=== PATIENT | male | born 1960 | race African-American/Black ===

== ENCOUNTER 2017-08-07 06:47 | Emergency (ER) | payer OTHER ==
[~2017-08-07] VITALS: Ht 182.9 cm; Wt 85.0 kg
[2017-08-07] MEDS ORDERED: BARIUM SULFATE 0.1% SUSPENSION 450 ML BOTTLE PO ONE (07:15)
[2017-08-07] MEDS ORDERED: HYDROmorphone 2 MG/ML SYRINGE IVP ONE (07:15)
[2017-08-07] MEDS ORDERED: SODIUM CHLORIDE 0.9% 1,000 ML IV ONE (07:15)
[2017-08-07] MEDS ORDERED: ONDANSETRON HCL 4 MG/2 ML VIAL IVP ONE (07:15)
[2017-08-07 07:32] LABS: BASOPHILS % (AUTO) 0.5 % (0.0-2.0); EOSINOPHILS % (AUTO) 0.9 % (1.0-6.0); HEMATOCRIT 45.1 % (41-53); HEMOGLOBIN 15.5 g/dL (13.5-17.5); LYMPHOCYTES % (AUTO) 45.8 % (22.0-44.0); MEAN CORPUSCULAR HEMOGLOBIN 29.9 pg (26.0-34.0); MEAN CORPUSCULAR HGB CONC 34.3 G/dL (31.0-37.0); MEAN CORPUSCULAR VOLUME 87 fL (80-100); MONOCYTES # (AUTO) 0.5 K/uL (0.1-1.0); NEUTROPHILS # (AUTO) 1.9 K/uL (1.8-7.7); NEUTROPHILS % (AUTO) 41.8 % (40.0-70.0); RED BLOOD CELL COUNT(AUTO) 5.17 MIL/uL (4.50-5.90); RED CELL DISTRIBUTION WIDTH 13.1 % (11.5-14.5); WHITE BLOOD COUNT (AUTO) 4.5 K/uL (4.5-11.0)
[2017-08-07] MEDS ORDERED: SODIUM CHLORIDE 0.9% 100 ML ONE (07:47)
[2017-08-07] MEDS ORDERED: IOVERSOL 350 MG/ML 150 ML VIAL ONE (07:47)
[2017-08-07 07:52] LABS: PLATELET COUNT (AUTO) 131 K/uL (150-450)
[2017-08-07 07:58] LABS: CALCIUM, TOTAL 9.1 mg/dL (8.8-10.5); CREATININE 1.57 mg/dL (0.60-1.30); POTASSIUM 3.7 mmol/L (3.5-5.1)
[2017-08-07 08:03] LABS: ALBUMIN 3.7 g/dL (3.4-5.0); BILIRUBIN,TOTAL 0.3 mg/dL (0.1-1.0); TOTAL PROTEIN, SERUM 7.8 g/dL (6.4-8.2)
[2017-08-07 12:00] VITALS: BP 124/72
== END 2017-08-07 13:04 | disposition home or self-care (01) ==
LOC: EMS 06:49
DX: R10.33 Periumbilical pain (principal); R10.30 Lower abdominal pain, unspecified
CPT/HCPCS: 36415; 74020; 74177; 80053; 83605; 85025; 96361; 96374; 96375; 99285; J1170; J2405; J7030; J7050; Q9967; Z7610